=== PATIENT | male | born 1965 | race American Indian/Alaskan Native ===

== ENCOUNTER 2020-07-27 18:19 | Emergency (ER) | payer MEDICARE, MEDICAID ==
[~2020-07-27] VITALS: Ht 180.3 cm; Wt 84.0 kg
[2020-07-27] MEDS ORDERED: ONDANSETRON 4MG ODT PO ONE (19:00)
[2020-07-27] MEDS ORDERED: MORPHINE SULFATE 10 MG/ML CPJ IM ONE (19:00)
[2020-07-27] MEDS ORDERED: KETOROLAC 60MG/2ML VIAL IM ONE (19:00)
[2020-07-27] MEDS ORDERED: ETOMIDATE 2MG/ML 10ML VIAL IV ONE (19:30)
[2020-07-27] MEDS ORDERED: SODIUM CHLORIDE 0.9% 1,000 ML IV ONE (19:30)
[2020-07-27] MEDS ORDERED: ONDANSETRON HCL 4MG/2ML INJ IV ONE (19:30)
[2020-07-27 20:08] VITALS: BP 123/93
== END 2020-07-27 23:33 | disposition home or self-care (01) ==
LOC: ER 18:19
DX: S82.892A Other fracture of left lower leg, initial encounter for closed fracture (principal); W18.39XA Other fall on same level, initial encounter; Y93.89 Activity, other specified; Y92.89 Other specified places as the place of occurrence of the external cause; Y99.8 Other external cause status; F17.290 Nicotine dependence, other tobacco product, uncomplicated; Z98.890 Other specified postprocedural states
CPT/HCPCS: 27840; 73610; 96361; 96372; 96374; 99152; 99285; J1885; J2270; J2405; J3490; J7030

== ENCOUNTER → 2022-11-18 | Outpatient (CLI) | payer MEDICARE, MEDICAID, OTHER | END | disposition home or self-care (01) | LOC: US 10:24 | DX: N28.1 Cyst of kidney, acquired (principal); N18.9 Chronic kidney disease, unspecified; N39.0 Urinary tract infection, site not specified | CPT/HCPCS: 76770 ==

== ENCOUNTER → 2023-02-10 | Outpatient (CLI) | payer MEDICARE, MEDICAID ==
[~2023-02-10] MED LIST: IOHEXOL-300 100 ML BOTTLE ONE
== END | disposition home or self-care (01) ==
LOC: CT 08:56
DX: N28.1 Cyst of kidney, acquired (principal); K57.30 Diverticulosis of large intestine without perforation or abscess without bleeding
CPT/HCPCS: 74178; Q9967

== ENCOUNTER 2023-10-09 14:14 | Emergency (ER) | payer MEDICARE, MEDICAID ==
[~2023-10-09] VITALS: Ht 185.4 cm; Wt 99.0 kg
[2023-10-09 14:50] VITALS: O2SAT 99
[2023-10-09] MEDS: BACITRACIN ZINC OINT UDPKT TOP NR (15:45)
[2023-10-09] MEDS: IBUPROFEN 600MG TABLET PO NR (15:45)
[2023-10-09] MEDS: TETANUS, DIPHTHERIA, PERTUSSIS VAC/PF 0.5ML (>10YR OLD) IM ONE (15:45)
[2023-10-09] MEDS ORDERED: BO1 TP (15:53)
[2023-10-09] MEDS ORDERED: NAPR-681 PO (15:53)
[2023-10-09] MEDS ORDERED: AMOX1TAB16 PO (15:53)
[2023-10-09 16:00] VITALS: BP 122/74; PULSE 86; RESP 17; TEMP 98.3
== END 2023-10-09 17:31 | disposition home or self-care (01) ==
LOC: ER 14:14
DX: S80.812A Abrasion, left lower leg, initial encounter (principal); S81.851A Open bite, right lower leg, initial encounter; Z79.899 Other long term (current) drug therapy; W54.0XXA Bitten by dog, initial encounter; Y93.89 Activity, other specified; Y92.89 Other specified places as the place of occurrence of the external cause; Y99.8 Other external cause status
CPT/HCPCS: 90471; 90715; 99283

== ENCOUNTER 2023-10-11 12:48 | Emergency (ER) | payer MEDICARE, MEDICAID ==
[~2023-10-11] VITALS: Ht 180.3 cm; Wt 90.0 kg
[~2023-10-11 12:48] MED LIST changes: +AMOX1TAB16 PO; +BO1 TP; -IOHEXOL-300 100 ML BOTTLE ONE; +NAPR-681 PO
[2023-10-11 12:57] VITALS: BP 129/90; PULSE 86; RESP 16; TEMP 98.7; O2SAT 100
== END 2023-10-11 13:45 | disposition home or self-care (01) ==
LOC: ER 12:48
DX: S91.031D Puncture wound without foreign body, right ankle, subsequent encounter (principal); S71.151A Open bite, right thigh, initial encounter; Z48.00 Encounter for change or removal of nonsurgical wound dressing; W34.00XD Accidental discharge from unspecified firearms or gun, subsequent encounter
CPT/HCPCS: 99281